=== PATIENT | female | born 1980 | race American Indian/Alaskan Native ===

== ENCOUNTER 2017-06-18 08:10 | Emergency (ER) | payer OTHER ==
[2017-06-18] MEDS ORDERED: NORCO 10/325 PO ONE (09:29)
[2017-06-18] MEDS ORDERED: NACL 0.9% 1000 ML 1,000 ML IV ONE (09:29)
[2017-06-18 09:52] LABS: Basophils % (Auto) 0.9 % (0.0-1.8); Eosinophils % (Auto) 3.1 % (0.0-4.3); Hemoglobin 12.3 gm/dl (10.1-14.3); Mean Corpuscular HGB Conc 33 % (30-34); Mean Corpuscular Hemoglobin 25 pg (28-32); Mean Corpuscular Volume 75 fl (79-97); Platelet Count 202 K/mm3 (140-440); Red Blood Count 5.03 M/mm3 (3.65-5.03); Red Cell Distribution Width 16.1 % (13.2-15.2); White Blood Count 3.4 K/mm3 (4.5-11.0)
[2017-06-18] MEDS ORDERED: MORPHINE IV ONE (10:03)
[2017-06-18 10:05] LABS: INR 1.34 (0.87-1.13); Partial Thromboplastin Time 29.9 Sec. (24.2-36.6)
[2017-06-18 10:07] LABS: Alanine Aminotransferase 101 units/L (7-56); Albumin 3.7 g/dL (3.9-5); Albumin/Globulin Ratio 1.1 %; Alkaline Phosphatase 61 units/L (35-129); BUN/Creatinine Ratio 12; Blood Urea Nitrogen 7 mg/dL (7-17); Calcium 8.8 mg/dL (8.4-10.2); Carbon Dioxide 24 mmol/L (22-30); Glucose 93 mg/dL (65-100)
[2017-06-18 10:08] LABS: Anion Gap 16 mmol/L; Chloride 98.5 mmol/L (98-107); Potassium 4.2 mmol/L (3.6-5.0); Sodium 134 mmol/L (137-145)
--- NOTE | 2017-06-18 10:21 | Emergency Department Report ---
HPI - General Chief Complaint: Pain General Time Seen by Provider: 06/18/17 09:22 - HPI HPI: This is a 37 year-old female presents to the emergency department with complaint of body aches, headache, sore throat and subjective fever with chills and sweats going on for the past 2-3 days. She says that when she moves her body or her head she gets electricity like sensations shooting through her body. She went to an urgent care on Sunday night, 2 nights ago, and allegedly had a negative influenza and rapid strep test. 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 She has a past surgical history of cholecystectomy and hysterectomy. She otherwise has not taken anything for her symptoms prior to presentation. No recent travel or sick contacts at home. Her PCP is Dr Mosqueda. ED Past Medical Hx - Past Medical History Previous Medical History?: Yes Additional medical history: DVT - Surgical History Past Surgical History?: Yes Hx Cholecystectomy: Yes - Social History Smoking Status: Never Smoker Substance Use Type: None ED Review of Systems ROS: Stated complaint: PAIN IN HEAD/CHEST/ALL OVER/CHILLS Other details as noted in HPI Constitutional: chills, fever (subjective) Eyes: denies: eye pain, eye discharge, vision change ENT: throat pain. denies: ear pain Respiratory: denies: cough, shortness of breath, wheezing Cardiovascular: chest pain. denies: edema Gastrointestinal: vomiting. denies: abdominal pain Genitourinary: denies: urgency, dysuria, discharge Musculoskeletal: back pain, arthralgia, myalgia. denies: joint swelling Skin: denies: rash, lesions Neurological: headache. denies: numbness, paresthesias Physical Exam - Physical Exam Vital Signs: Vital Signs 06/18/17 08:28 Temperature 99 F Pulse Rate 88 Respiratory 16 Rate Blood Pressure 120/76 O2 Sat by Pulse 99 Oximetry Physical Exam: GENERAL: The patient is well-developed well-nourished. HENT: Normocephalic. Atraumatic. Patient has moist mucous membranes. EYES: Extraocular motions are intact. Pupils equal reactive to light bilaterally. No nystagmus. NECK: Supple. Trachea is midline. CHEST/LUNGS: Clear to auscultation. There is no respiratory distress noted. HEART/CARDIOVASCULAR: Regular. There is no tachycardia. There is no gallop rub or murmur. ABDOMEN: Abdomen is soft, nontender. Patient has normal bowel sounds. There is no abdominal distention. SKIN: Skin is warm and dry. NEURO: The patient is awake, alert, and oriented. The patient is cooperative. The patient has no focal neurologic deficits. The patient has normal speech. Cranial nerves II through XII grossly intact. MUSCULOSKELETAL: There is no tenderness or deformity. There is no limitation range of motion. There is no evidence of acute injury. ED Course Vital Signs 06/18/17 08:28 Temperature 99 F Pulse Rate 88 Respiratory 16 Rate Blood Pressure 120/76 O2 Sat by Pulse 99 Oximetry ED Medical Decision Making - Lab Data Result diagrams: 06/18/17 09:33 06/18/17 09:33 - EKG Data -: EKG Interpreted by Tn EKG shows normal: sinus rhythm, axis, intervals, QRS complexes, ST-T waves Rate: normal - EKG Data When compared to previous EKG there are: previous EKG unavailable Interpretation: normal EKG - Radiology Data Radiology results: report reviewed, image reviewed CTA CHEST: History: Chest pain. Technique: Helical CT following IV contrast. Pulmonary embolus protocol. Sagittal and coronal reformatted images. Rotational MIP images. Findings: Contrast bolus is satisfactory. No pulmonary embolus is identified. The thyroid gland, tracheobronchial tree, esophagus, heart, pericardium, mediastinal vessels, lung mullins and bony thorax are unremarkable. Impression: No evidence for pulmonary embolus. Unremarkable CT chest with contrast. CT HEAD WITHOUT CONTRAST: HISTORY: Headache. Serial contiguous axial images were obtained through the cranium. Intravenous contrast material was not administered. The ventricles are normal in size and appearance. There is no mass effect or midline shift. No areas of abnormally increased or decreased attenuation are seen. No mass lesion is seen. The mastoid air cells and visualized portions of the sinuses are normal. IMPRESSION: Cranial CT scan within normal limits. - Medical Decision Making 37-year-old female presents to the emergency department with a few days of subjective fever, body aches including some pain in the chest and head. She has no focal, motor or sensory deficits in her cranial nerves are intact. CT of the head does not show any bleed, shift, mass or any acute process. Labs are mostly unremarkable except for a slightly elevated and equivocal d-dimer. For this reason a CT angiography of the chest was done that did not show any pulmonary embolism or dissection or any other acute process. EKG does not show any signs of ST elevation MN, ischemia or dysrhythmia. Vital signs stable throughout her ED course including being afebrile. She was given some IV fluid resuscitation and something for discomfort. Upon reevaluation she is feeling improved. This appears most consistent with a viral syndrome. We discussed using Tylenol and ibuprofen as needed for fever or discomfort and the importance of following up with a primary care physician. She will return to the ER with any worsening of her symptoms or any acute distress. Regarding the patient's chest discomfort, she is low on the Heart score criteria and has a BYRON score of 0. - Differential Diagnosis viral syndrome, pneumonia, costochondritis, tension headache, migraine Critical Care Time: No Critical care attestation.: If time is entered above; I have spent that time in minutes in the direct care of this critically ill patient, excluding procedure time. ED Disposition Clinical Impression: Viral syndrome, Body aches Pharyngitis Qualifiers: Pharyngitis/tonsillitis etiology: unspecified etiology Qualified Code(s): J02.9 - Acute pharyngitis, unspecified Headache Qualifiers: Headache type: unspecified Headache chronicity pattern: unspecified pattern Intractability: not intractable Qualified Code(s): R51 - Headache Disposition: DC-01 TO HOME OR SELFCARE Is pt being admited?: No Condition: Stable Instructions: Acute Headache (ED), Viral Syndrome (ED) Additional Instructions: Please follow-up with your primary care physician in the next few days. Return to the emergency Department with any worsening of your symptoms, intractable fever or intractable vomiting, or any acute distress. You can use Tylenol every 4 hours and ibuprofen every 6 hours, using weight-based dosing, as needed for fever or discomfort. Referrals: AGATHA MOSQUEDA DO [Primary Care Provider] - [facility] Time of Disposition: 13:07
--- NOTE | 2017-06-18 10:24 | XRay Report ---
ROUTINE CHEST, TWO VIEWS: HISTORY: chest pain. The trachea, heart, mediastinal contour, lung mullins and bony thorax are unremarkable. IMPRESSION: Unremarkable chest x-ray.
[2017-06-18] MEDS ORDERED: MORPHINE ONE (10:48)
[2017-06-18] MEDS ORDERED: BENADRYL ONE (11:07)
[2017-06-18] MEDS ORDERED: BENADRYL IV ONE (11:07)
--- NOTE | 2017-06-18 12:09 | Cat Scan Report ---
CTA CHEST: History: Chest pain. Technique: Helical CT following IV contrast. Pulmonary embolus protocol. Sagittal and coronal reformatted images. Rotational MIP images. Findings: Contrast bolus is satisfactory. No pulmonary embolus is identified. The thyroid gland, tracheobronchial tree, esophagus, heart, pericardium, mediastinal vessels, lung mullins and bony thorax are unremarkable. Impression: No evidence for pulmonary embolus. Unremarkable CT chest with contrast.
--- NOTE | 2017-06-18 12:09 | Cat Scan Report ---
CT HEAD WITHOUT CONTRAST: HISTORY: Headache. Serial contiguous axial images were obtained through the cranium. Intravenous contrast material was not administered. The ventricles are normal in size and appearance. There is no mass effect or midline shift. No areas of abnormally increased or decreased attenuation are seen. No mass lesion is seen. The mastoid air cells and visualized portions of the sinuses are normal. IMPRESSION: Cranial CT scan within normal limits.
[2017-06-18 12:42] LABS: Bilirubin,Urine NEG (Negative); Blood,Urine NEG (Negative); Ketones,Urine NEG (Negative); Leukocyte Esterase,Urine NEG (Negative); Mucus,Urine FEW /HPF; Nitrite,Urine NEG (Negative); Protein,Urine <15 mg/dL mg/dL (Negative); Urobilinogen,Urine < 2.0 mg/dL (<2.0)
[2017-06-18 14:17] VITALS: BP 115/72
== END 2017-06-18 14:18 | disposition home or self-care (01) ==
LOC: ED 08:10
DX: B34.9 Viral infection, unspecified (principal); J02.9 Acute pharyngitis, unspecified; R51 Headache; M79.1 Myalgia; I82.409 Acute embolism and thrombosis of unspecified deep veins of unspecified lower extremity
CPT/HCPCS: 36415; 70450; 71020; 71275; 80053; 81001; 84484; 85025; 85379; 85610; 85730; 87400; 93005; 93010; 96361; 96374; 96375; 99285; J1200; J2270; J7030; Q9967